=== PATIENT | male | born 1990 | race Caucasian/White ===

== ENCOUNTER 2016-12-04 01:10 | Emergency (ER) | payer OTHER ==
[2016-12-04 01:24] VITALS: BP 128/67
--- NOTE | 2016-12-04 02:40 | PROVIDER DOCUMENTATION ---
HPI-General Adult - General Chief Complaint: Request RX Stated Complaint: BEEN AWAKE FOR 4 DAYS Time Seen by Provider: 12/04/16 02:35 Source: patient Allergies/Adverse Reactions: Patient Allergies Allergy/AdvReac Type Severity Reaction Status Date / Time No Known Allergies Allergy Verified 08/08/14 12:48 Home Medications: Home Medication List Medication Instructions Recorded Confirmed Last Taken Type Multivitamin [Multivitamins] 1 each PO DAILY 05/11/16 05/11/16 Unknown History Buprenorphine/Naloxone S.l. 1 each SL BID #60 strip 05/13/16 Unknown Rx [Suboxone 8 mg/2 mg] Ciprofloxacin [Cipro] 500 mg PO BID #0 tablet 05/13/16 Unknown Rx Escitalopram [Lexapro] 20 mg PO QHS #0 tablet 05/13/16 Unknown Rx Adalimumab [Humira] 1 applic SQ DIRECTED 12/04/16 12/04/16 Unknown History Amphetamine Salts [Adderall] 15 mg PO DIRECTED 12/04/16 12/04/16 Unknown History - History of Present Illness -Gen Adult Nature of Presenting Problems: 26 YOWM PRESENTS TO ED WITH C/O PT STATE HE HAS HAD A ABSCESS ON HIS LT BUTTOCKS CHEEK SINCE 2013. 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 PT STATES HE HAS BEEN TAKING SUBOXONE TREATMENT SINCE MAY OF 2016. PT STATES HE IS OUT OF SUBOXONE , AND HAD TAKEN HIS LAST ONE ON December. PT STATES HE CAN'T SLEEP. PT STATES HE GETS 20 MINUTES INCREMENTS OF SLEEP AT A TIME. PT DID ADMIT TO DOING METH. Review of Systems - Adult - REVIEW OF SYSTEMS - ADULT Constitutional: denies: chills, fever Eyes: reports: no symptoms reported Ears, Nose, Mouth & Throat: reports: no symptoms reported Cardiovascular: denies: chest pain, palpitations, syncope Respiratory: denies: cough, shortness of breath, wheezing Gastrointestinal: denies: abdominal pain, diarrhea, nausea, vomiting Genitourinary: reports: no symptoms reported Musculoskeletal: denies: back pain, neck pain Integumentary: reports: no symptoms reported Neurological: denies: dizziness/vertigo, headache/migraines, syncope Psychiatric: reports: anxiety Endocrine: reports: no symptoms reported Hematologic/Lymphatic: reports: no symptoms reported Allergic/Immunologic: reports: no symptoms reported All Other Systems: Reviewed and Negative Past History - Adult - PAST MEDICAL HISTORY-ADULT Review of Records: reports: Nursing Assessment Review, Medications Reviewed Gastrointestinal: reports: Crohn's - IMMUNIZATION STATUS Childhood Immunizations: See Nurse Assessment Flu Vaccine: See Nurse Assessment - SOCIAL HISTORY Smoking: cigarettes, less than 1 pack/day Provider spent 3-5 mins advising pt. on dangers of tobacco.: Discussed manners to quit use, and f/u contacts for add'l counseling. Substance Use: denies Alcohol Use Frequency: never Living Situation: family Physical Exam-General - CONSTITUTIONAL General Appearance: alert - EYES Eyes: PERRL/EOMI, pink conjunctivae - HEAD, EARS, NOSE, MOUTH & THROAT HENMT: normocephalic/atraumatic, moist mucous membranes - NECK Neck: non-tender, full range of motion, supple - RESPIRATORY Respiratory: chest non-tender, lungs clear, normal breath sounds - CARDIOVASCULAR Cardiovascular: normal peripheral pulses, regular rate, rhythm - GASTROINTESTINAL (ABDOMEN) Abdominal Exam: normal bowel sounds, non tender, soft - LYMPHATIC Lymphatic: no adenopathy - MUSCULOSKELETAL Back Exam: normal inspection, no CVA tenderness, no vertebral tenderness Extremity: normal range of motion, non-tender - SKIN Integumentary: normal color, normal turgor, warm/dry - NEUROLOGIC Neurologic: grossly normal - PSYCHIATRIC Psych/Mental Status: oriented x 3 Departure - Departure Time of Disposition Order: 02:39 DIAGNOSIS: Generalized anxiety disorder Disposition: HOME 01 Certified Medical Emergency: Emergent Condition: Stable Additional Instructions: ED Follow Up Instructions: You have been treated by a care provider in the Emergency Department. These instructions are being provided to you so you can have an understanding of how to care for yourself upon discharge. Upon discharge from the Emergency Department, you are responsible for making arrangements for follow-up care by a physician of your choice. Take all prescribed medications as directed. Return to the Emergency Department immediately for any new or worsening symptoms. You may call the Physician Referral phone number at [phone] to obtain a list of Physicians who are taking new patients. Referrals: Frank Betts [Primary Care Provider] - Forms: Return to School/Parent Work
== END 2016-12-04 02:50 | disposition home or self-care (01) ==
LOC: P.ED 01:10
DX: F41.1 Generalized anxiety disorder (principal); K50.90 Crohn's disease, unspecified, without complications; F17.210 Nicotine dependence, cigarettes, uncomplicated; Z71.6 Tobacco abuse counseling; Z79.899 Other long term (current) drug therapy
CPT/HCPCS: 99283

== ENCOUNTER 2016-12-17 01:26 | Emergency (ER) | payer OTHER ==
--- NOTE | 2016-12-17 02:04 | PROVIDER DOCUMENTATION ---
HPI-Psychological Disorder - General Chief Complaint: Psych Stated Complaint: DEPRESSION Time Seen by Provider: 12/17/16 01:50 Source: patient Allergies/Adverse Reactions: Patient Allergies Allergy/AdvReac Type Severity Reaction Status Date / Time No Known Allergies Allergy Verified 08/08/14 12:48 Home Medications: Home Medication List Medication Instructions Recorded Confirmed Last Taken Type Multivitamin [Multivitamins] 1 each PO DAILY 05/11/16 05/11/16 Unknown History Buprenorphine/Naloxone S.l. 1 each SL BID #60 strip 05/13/16 Unknown Rx [Suboxone 8 mg/2 mg] Ciprofloxacin [Cipro] 500 mg PO BID #0 tablet 05/13/16 Unknown Rx Escitalopram [Lexapro] 20 mg PO QHS #0 tablet 05/13/16 Unknown Rx Adalimumab [Humira] 1 applic SQ DIRECTED 12/04/16 12/04/16 Unknown History Amphetamine Salts [Adderall] 15 mg PO DIRECTED 12/04/16 12/04/16 Unknown History - History of Present Illness-Psych Nature of Presenting Problem: PT IS A 26YOM PRESENTING TO THE ED C/O SI. PT STATES HE HAS BEEN OFF HIS DEPRESSION MEDS FOR A WHILE AND FEELS LIKE HE WANTS TO KILL HIMSELF. PT DENIES A PLAN OR ATTEMPT OF SUICIDAL AND DENIES BEING HOMICIDAL, NO OTHER COMPLAINTS AT THIS TIME Onset/Duration: reports: gradual Timing: reports: still present Severity: reports: mild Situational problems related to:: reports: N/A Psychiatric Complaints: reports: anxiety, depressed, suicidal ideation. denies : hallucinating, homicidal thoughts Substance Use: reports: none presently/history of abuse, opiates Previous psych related hospitalizations?: No Patient arrived by:: private car Similar Symptoms Previously?: No Recently seen or treated by another doctor?: No - Suicidal Ideation Suicide Risk Assessment: male sex, age <19, depressed, drug or ETOH abuse. negative: prior attempt Clinician's estimation of suicide risk?: uncertain risk Review of Systems - Adult - REVIEW OF SYSTEMS - ADULT Constitutional: reports: no symptoms reported Eyes: reports: no symptoms reported Ears, Nose, Mouth & Throat: reports: no symptoms reported Cardiovascular: reports: no symptoms reported Respiratory: reports: no symptoms reported Gastrointestinal: reports: no symptoms reported Genitourinary: reports: no symptoms reported Musculoskeletal: reports: no symptoms reported Integumentary: reports: no symptoms reported Neurological: reports: no symptoms reported Psychiatric: reports: see HPI, anxiety, anti-depressant use, alcohol/drug dependence, depression, emotional problems, suicidal thoughts Endocrine: reports: no symptoms reported Hematologic/Lymphatic: reports: no symptoms reported Allergic/Immunologic: reports: no symptoms reported All Other Systems: Reviewed and Negative Past History - Adult - PAST MEDICAL HISTORY-ADULT Review of Records: reports: Old Records Reviewed, Nursing Assessment Review, Medications Reviewed, Social history reviewed & non-contributory. Major Childhood Illnesses: reports: denies history Cardiovascular: reports: denies history Respiratory: reports: denies history Gastrointestinal: reports: Crohn's Obstetrical/Gynecological: reports: denies history Genitourinary: reports: denies history Musculoskeletal: reports: denies history Neurological: reports: denies history Endocrine/Immune: reports: denies history Other Conditions: reports: denies history - IMMUNIZATION STATUS Childhood Immunizations: See Nurse Assessment Flu Vaccine: See Nurse Assessment - FAMILY HISTORY Family History: reviewed, not pertinent - SOCIAL HISTORY Smoking: cigarettes, greater than 1 pack/day Provider spent 3-5 mins advising pt. on dangers of tobacco.: Discussed manners to quit use, and f/u contacts for add'l counseling. 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, oriented x 3, anxious, depressed affect Behavior/Eye Contact/Speech: cooperative, good eye contact, normal speech Thoughts/Hallucinations: normal thought pattern, no apparent hallucination HENMT: normocephalic/atraumatic, moist mucous membranes, normal ENT inspection, TMs normal, pharynx normal Neck: non-tender, full range of motion, supple, normal inspection Respiratory: chest non-tender, lungs clear, normal breath sounds, no pleuratic chest pain, no respiratory distress, no accessory muscle use Cardiovascular: normal peripheral pulses, regular rate, rhythm, no edema, no gallop, no JVD, no murmur Abdominal Exam: normal bowel sounds, non tender, soft, no organomegaly, no pulsatile mass Lymphatic: no adenopathy Back Exam: normal inspection, no CVA tenderness, no vertebral tenderness Extremity: normal range of motion, non-tender, normal gait, normal inspection, no pedal edema, no calf tenderness, normal capillary refill, pelvis stable Integumentary: normal color, normal turgor, warm/dry Attestation - Scribe Verification/Attestation Scribe:: Barbara Malik Acting as Scribe for:: Jesse Zamarripa Scribe documention review:: This chart was documented by a scribe and accurately reflects the service the provider performed and the decisions made by the provider. Physician Attestation - Physician Attestation I, the provider, attest to the following statement:: Jesse Zamarripa Physician documentation Attestation:: This documentation recorded by the scribe accurately reflects the service I personally performed and the decisions made by me.
[2016-12-17 02:18] LABS: MANUAL DIFF NEEDED? NO
[2016-12-17 02:19] LABS: BASO% 0.5 % (0.0-0.8); EOS# 0.28 X1000 (0.0-0.7); EOS% 2.6 % (0.0-10.0); HEMATOCRIT 36.6 % (42.0-52.0); HEMOGLOBIN 12.1 g/dL (14.0-18.0); IMM GRAN# 0.03 X1000 (0.0-0.04); IMM GRAN% 0.3 % (0.0-0.5); LYMPH# 2.05 X1000 (1.2-3.4); LYMPH% 19.3 % (20.5-51.1); MCH 28.6 PG (27-31); MCHC 33.1 g/dL (33-37); MCV 86.5 FL (81-99); MONO# 1.27 X1000 (0.11-0.59); MPV 9.3 FL (7.4-10.4); NEUT% 65.3 % (42.2-75.2); PLT 450 X1000 (130-400); RBC 4.23 XMIL (4.7-6.1); URINE SOURCE VOIDED
[2016-12-17 02:36] LABS: AGAP 11; ALBUMIN 3.7 g/dL (3.5-5.0); ALKALINE PHOSPHATASE 81 U/L (32-122); BUN 14 mg/dL (8-22); CALCIUM 8.7 mg/dL (8.8-10.2); CHLORIDE 104 mmol/L (98-107); COSMO 278; GOT 11 U/L (10-34); GPT 10 U/L (10-44); POTASSIUM 3.8 mmol/L (3.5-5.1); SODIUM 139 mmol/L (136-145); TCO2 24 mmol/L (25-35); TOTAL PROTEIN 6.5 g/dL (6.3-8.3)
[2016-12-17 02:42] LABS: BILIRUBIN URINE NEGATIVE (NEGATIVE); BLOOD URINE NEGATIVE (NEGATIVE); CLARITY CLEAR (CLEAR); COLOR YELLOW; GLUCOSE URINE NEGATIVE (NEGATIVE); LEUKOCYTES URINE TRACE (NEGATIVE); NITRITE URINE NEGATIVE (NEGATIVE); PH URINE 6.5; PROTEIN URINE TRACE mg/dL (NEGATIVE); SP GRAVITY URINE 1.015; UR AMPHETAMINES QUAL NONE DETECTED (NONE DETECT); UR BARBITUATES QUAL NONE DETECTED (NONE DETECT); UR BENZODIAZEPIN QUAL NONE DETECTED (NONE DETECT); UR CANNABINOIDS QUAL PRESUMPTIVE POSITIVE (NONE DETECT); UR COCAINE QUAL PRESUMPTIVE POSITIVE (NONE DETECT); UR MDMA QUAL NONE DETECTED (NONE DETECT); UR METHADONE QUAL NONE DETECTED (NONE DETECT); UR METHAMPHETAMINE QUAL NONE DETECTED (NONE DETECT); UR OPIATES QUAL NONE DETECTED (NONE DETECT); UR OXYCODONE QUAL NONE DETECTED (NONE DETECT); UR PCP QUAL NONE DETECTED (NONE DETECT); UR TCA QUAL NONE DETECTED (NONE DETECT); URINE CULTURE PL NEEDED? YES; URINE EPITHELIAL CELLS <10 /HPF (<10); URINE RBC <10 /HPF (<10); URINE WBC <10 /HPF (<10); UROBILINOGEN URINE NORMAL
--- NOTE | 2016-12-17 02:42 | EKG Report ---
Test Performed on : 12/17/2016 02:32:40 AM Test Reason : psych screening Blood Pressure : / mmHG Vent. Rate : 072 BPM Atrial Rate : 072 BPM P-R Int : 118 ms QRS Dur : 082 ms QT Int : 376 ms P-R-T Axes : 037 073 058 degrees QTc Int : 411 ms Normal sinus rhythm. with sinus arrhythmia. Normal ECG When compared with ECG of 15-NOV-2015 13:03, No significant change was found Unconfirmed Result
[2016-12-17 02:46] LABS: FREE T4 1.11 ng/dL (0.93-1.70)
[2016-12-17 07:12] VITALS: BP 125/89
== END 2016-12-17 07:56 ==
LOC: P.ED 01:26
DX: F32.9 Major depressive disorder, single episode, unspecified (principal); K50.90 Crohn's disease, unspecified, without complications; F17.210 Nicotine dependence, cigarettes, uncomplicated; Z71.6 Tobacco abuse counseling
CPT/HCPCS: 80053; 80305; 81001; 82607; 84439; 84443; 85025; 87088; 93005; 99285; G0480; 80320